=== PATIENT | female | born 1995 | race Caucasian/White ===

== ENCOUNTER 2017-12-15 15:19 | Emergency (ER) | payer BC ==
[~2017-12-15] VITALS: Ht 172.7 cm; Wt 70.0 kg
[2017-12-15 16:02] VITALS: PULSE 89; RESP 18; TEMP 98.4; O2SAT 100
--- NOTE | 2017-12-15 17:00 | RADRPT ---
EXAM DATE/TIME: 12/15/2017 16:24 [place] COMPARISON: No previous studies available for comparison. INDICATIONS : Left posterior wrist pain after fall. MEDICAL HISTORY : None. SURGICAL HISTORY : None. ENCOUNTER: Initial ACUITY: 1 day PAIN SCORE: 6/10 LOCATION: Left posterior wrist. FINDINGS: 3 views left wrist. Horizontal fracture of the distal radius 9 mm proximal to the radiocarpal joint. Fracture line extends to the margin of the distal radioulnar joint. Nondisplaced. Neutral alignment o n the lateral view. Fracture of the base of the ulnar styloid with 4 mm displacement. Carpal boss als o noted at the dorsal base of the third metacarpal. CONCLUSION: Nondisplaced distal radius fracture. Ulnar styloid fracture. Gerber Prasad MD on December 15, 2017 at 16:56 Board Certified Radiologist. This report was verified electronically.
[2017-12-15] MEDS ORDERED: HYDR-3516 PO (19:09)
--- NOTE | 2017-12-15 19:11 | PD ---
HPI Chief Complaint: Injury Time Seen by Provider: 19:04 Travel History International Travel<30 days: No Contact w/Intl Traveler<30days: No Traveled to known affect area: No History of Present Illness HPI 22-year-old female presents for evaluation of left wrist pain. This afternoon she had a fall on her outstretched left hand. She now has left wrist pain, aching, worse with movement. Denies any numbness or tingling. Denies any open wounds. No other complaints. PFSH Past Medical History Influenza Vaccination: Yes ?: Not LMP: APPROX 1 YR AGO Social History Alcohol Use: No Tobacco Use: No Substance Use: No Allergies-Medications (Allergen,Severity, Reaction): Coded Allergies: No Known Allergies (Unverified , 12/15/17) Reported Meds & Prescriptions Reported Meds & Active Scripts Active Hydrocodone-Acetaminophen 5-325 mg Tab 1 Tab PO Q6H PRN Review of Systems Musculoskeletal: Positive: Pain Neurologic: Positive: Paresthesia Physical Exam Narrative GENERAL: Well-nourished female no acute distress SKIN: Warm and dry. HEAD: Atraumatic. Normocephalic. EYES: Pupils equal and round. No scleral icterus. No injection or drainage. ENT: No nasal bleeding or discharge. Mucous membranes pink and moist. NECK: Trachea midline. No JVD. CARDIOVASCULAR: Regular rate and rhythm. No murmur appreciated. RESPIRATORY: No accessory muscle use. Clear to auscultation. Breath sounds equal bilaterally. MUSCULOSKELETAL: Tender to palpation left wrist with some soft tissue swelling on the left wrist. There is pain with flexion, extension, supination and pronation. Distal sensation is preserved. 2+ radial pulse. NEUROLOGICAL: Awake and alert. No obvious cranial nerve deficits. Motor grossly within normal limits. Normal speech. Data Data Last Documented VS Vital Signs Date Time Temp Pulse Resp B/P (MAP) Pulse Ox O2 Delivery O2 Flow Rate FiO2 12/15/17 16:02 98.4 89 18 100 Orders Orders Wrist, Complete ([id number]) (12/15/17 ) Ed Urine Pregnancytest Poc (12/15/17 16:06) Radiology Film Requests (12/15/17 ) Splint Or Brace Apply/Monitor (12/15/17 19:09) Ed Discharge Order (12/15/17 19:09) Acetamin-Hydrocod 325-5 Mg ([place] 5-325 (12/15/17 19:15) MDM Medical Decision Making Medical Screen Exam Complete: Yes Emergency Medical Condition: Yes Medical Record Reviewed: Yes Differential Diagnosis Left wrist fracture, sprain, dislocation Narrative Course X-ray imaging reveals nondisplaced left distal radius fracture as well as an ulnar styloid fracture. The patient will be placed in a sugar tong splint. She is from [place], returning next week, will follow up with orthopedist there. Diagnosis Primary Impression: Left wrist fracture Additional Instructions: Do not remove the splint. Medication as needed. Follow-up with an orthopedist next week. Return for any emergent medical conditions. Med/Other Pt SpecificInfo: Prescription(s) given, Orthopedic Instructions Scripts Hydrocodone-Acetaminophen (Hydrocodone-Acetaminophen) 5-325 mg Tab 1 TAB PO Q6H Y for PAIN, #20 TAB 0 Refills Prov: Naif Bañuelos MD 12/15/17 Disposition: 01 DISCHARGE HOME Condition: Stable Benigno Mcguire Dec 15, 2017 19:11
[2017-12-15] MEDS ORDERED: ACETAMINOPHEN/HYDROcodone 325 MG/5 MG TAB PO ONE (19:15)
== END 2017-12-15 19:50 | disposition home or self-care (01) ==
LOC: NEPD 15:19
DX: S52.502A Unspecified fracture of the lower end of left radius, initial encounter for closed fracture (principal); S52.612A Displaced fracture of left ulna styloid process, initial encounter for closed fracture; W18.30XA Fall on same level, unspecified, initial encounter
CPT/HCPCS: 29125; 73110; 84703